=== PATIENT | male | born 1970 | race Caucasian/White ===

== ENCOUNTER 2018-05-26 17:53 | Emergency (ER) | payer SELFPAY ==
[~2018-05-26] VITALS: Ht 170.2 cm; Wt 88.1 kg
[2018-05-26 19:44] LABS: BASOPHIL (%) 0.6 % (0-1); BASOPHIL COUNT 0.1 K/uL (0-0.1); EOSINOPHIL (%) 1.5 % (0-5); EOSINOPHIL COUNT 0.1 K/uL (0-0.3); HEMATOCRIT 43.1 % (38.0-50.0); HEMOGLOBIN 14.9 G/DL (12.5-16.6); IMMATURE GRANULOCYTE (%) 0.3 % (0.0-0.7); LYMPHOCYTE (%) 33.8 % (15-42); LYMPHOCYTE COUNT 2.7 K/uL (1.0-2.8); MCH 30.4 PG (29.0-34.0); MCHC 34.6 G/DL (30.0-36.0); MONOCYTE (%) 5.5 % (3-12); MONOCYTE COUNT 0.4 K/uL (0-0.8); NEUTROPHIL (%) 58.3 % (45-76); NEUTROPHIL COUNT 4.6 K/uL (1.8-6.4); PLATELET COUNT 174 K/uL (156-360); RBC DIS.WIDTH-CV 12.3 % (11.8-14.6); RBC DIS.WIDTH-SD 39.4 % (39-53); WHITE BLOOD COUNT 7.9 K/uL (4.1-10.2)
[2018-05-26 19:59] LABS: ALBUMIN 4.3 g/dL (3.2-4.8); CHLORIDE 108 mEq/L (99-109); POTASSIUM 4.1 mEq/L (3.7-5.4); SODIUM 142 mEq/L (136-147)
[2018-05-26 20:01] LABS: GLUCOSE 96 mg/dL (70-99)
[2018-05-26 20:03] LABS: TOTAL BILIRUBIN 0.4 mg/dL (0.0-1.0)
[2018-05-26 20:05] LABS: ALKALINE PHOSPHATASE 57 IU/L (3-129); CREATININE 0.8 mg/dL (0.6-1.3); GFR ESTIMATE (CALCULATED) > 59 mL/min/ (58.99-99999)
[2018-05-26 20:06] LABS: AST (GOT) 18 IU/L (2-34); UREA NITROGEN (BUN) 11 mg/dL (9-23)
[2018-05-26 20:08] LABS: ALT (GPT) 17 IU/L (3-49)
[2018-05-26 20:11] LABS: TROP-I INTERPRETATION NEGATIVE; TROPONIN-I < 0.01 ng/mL (0.0-0.30)
[2018-05-26 20:11] LABS: APPEARANCE CLEAR ((CLEAR)); BILIRUBIN NEGATIVE; BLOOD NEGATIVE; COLOR YELLOW ((YELLOW)); GLUCOSE (STRIP) NEGATIVE; KETONES NEGATIVE; LEUKOCYTES NEGATIVE; NITRITE NEGATIVE; PROTEIN (STRIP) NEGATIVE; SPECIFIC GRAVITY 1.017 (1.000-1.030); UCUL ADDED? NO; UROBILINOGEN 0.2 MG/DL (0.2-1.0)
[2018-05-26 21:06] LABS: HDL CHOLESTEROL 39 MG/DL (Desirable>=40); LDL CHOLESTEROL 166 mg/dL (Desirable<100); NON-HDL CHOLESTEROL 199 mg/dL (Desirable<160); TOTAL CHOLESTEROL 238 mg/dL (Desirable<200); TRIGLYCERIDES 166 MG/DL (Normal: <150)
[2018-05-26] MEDS ORDERED: AUGMENTIN875 MG PO (22:22)
[2018-05-26 22:51] VITALS: BP 157/97
[2018-05-29 11:04] LABS: HEMOGLOBIN A1c (GLYCOHEMOGLOB) 5.7 % (Below 5.7)
== END 2018-05-26 22:53 | disposition home or self-care (01) ==
LOC: EME 17:53
PROVIDERS: Emergency Medicine
DX: H53.2 Diplopia (principal); J32.1 Chronic frontal sinusitis; F17.200 Nicotine dependence, unspecified, uncomplicated
CPT/HCPCS: 70450; 70551; 80053; 80061; 81003; 83036; 84484; 85025; 99281; 99284